=== PATIENT | female | born 1940 | race Caucasian/White ===

== ENCOUNTER → 2019-05-22 11:51 | Outpatient (CLI) | payer MEDICARE, SELFPAY ==
--- NOTE | ~2019-05-22 | MR_ITS ---
EXAMINATION: MR cervical spine wo [facility] EXAM DATE: 05/22/2019 12:40 INDICATION: Spinal stenosis. Neck pain for 2 years, progressing. TECHNIQUE: Multi-sequential, multiplanar MR images of the cervical spine were obtained without contra st. Axial T2, axial T2 MERGE sequence. Sagittal T1, T2, T2 fat saturation images also obtained. Th ere is no prior study for comparison. FINDINGS: Multinodular goiter. Consider follow-up ultrasound for risk stratification. There is conge nital fusion of the C4-5 vertebral bodies. Partial fusion of the C6-7 vertebral bodies. There is mode rate loss of the C3 vertebral body heights, chronic compression. There is moderate to severe C2-3 and C3-4 disc disease, moderate at C5-6. There are no suspicious marrow signal abnormalities. The spinal cord signal intensity and intrinsic morphology is normal. Cervicomedullary junction is normal in [place] ear[place]. Paraspinal soft tissue is unremarkable. Level by level evaluation: C2-C3: There is a mild to moderate diffuse disc bulge. Uncovertebral joint arthropathy: Moderate left, mild to moderate right. Facet joint arthropathy: Mild to moderate bilateral. Neural foraminal stenosis: Moderate right, mild to moderate left. Central canal stenosis: Mild. C3-C4: There is a mild to moderate diffuse disc bulge. Uncovertebral joint arthropathy: Moderate bilateral. Facet joint arthropathy: Moderate bilateral. Neural foraminal stenosis: Mild to moderate left, mild right. Central canal stenosis: Mild. C4-C5: There is osseous fusion of these vertebral bodies. Uncovertebral joint arthropathy: Fused. Facet joint arthropathy: Fused. Neural foraminal stenosis: No stenosis. Central canal stenosis: No stenosis. C5-C6: There is a mild to moderate diffuse disc bulge asymmetric to the right Uncovertebral joint arthropathy: Moderate to severe right, mild to moderate left. Facet joint arthropathy: Moderate right, mild to moderate left. Neural foraminal stenosis: Moderate to severe right, mild to moderate left. Central canal stenosis: Mild. C6-C7: There is osseous fusion of these vertebral bodies. Uncovertebral joint arthropathy: Fused. Facet joint arthropathy: Left-sided fused, mild right. Neural foraminal stenosis: No stenosis. Central canal stenosis: No stenosis. C7-T1: There is a mild diffuse disc bulge. Uncovertebral joint arthropathy: Mild bilateral. Facet joint arthropathy: Mild bilateral. Neural foraminal stenosis: No stenosis. Central canal stenosis: No stenosis. IMPRESSION: 1. Cervical fusions, spondylosis as detailed above. Reviewed, dictated and finalized at location A. [employer]
== END ==
PROVIDERS: PCP Internal Medicine; Visit Provider Internal Medicine
DX: M48.03 Spinal stenosis, cervicothoracic region (principal); M43.22 Fusion of spine, cervical region; M47.812 Spondylosis without myelopathy or radiculopathy, cervical region
CPT/HCPCS: 72141